=== PATIENT | female | born 1965 | race Two or more races ===

== ENCOUNTER 2025-05-05 18:12 | Emergency (ER) | payer OTHER, MEDICAID ==
[~2025-05-05] VITALS: Ht 162.6 cm; Wt 68.5 kg
--- NOTE | 2025-05-05 18:40 | ECG ---
[facility] Test Date: 2025-05-05 Test Time: 18:20:27 Pat Name: SUNITA MUNSON Department: ED Room: Gender: F Dispenser Operator: harini : 1965 Requested By: ZAIDA BRUNO Order Number: [id number] Reading MD: Alberto Trinidad Measurements Intervals [place] Rate: 81 P: 63 VT: 175 QRS: 73 QRSD: 93 T: 64 QT: 363 QTc: 422 Interpretive Statements Sinus rhythm Abnormal R-wave progression, early transition Electronically Signed On 05-09-2025 18:38:51 PDT by Alberto Trinidad Please click the below link to view image of tracing.
--- NOTE | 2025-05-05 19:01 | ED.PDOC ---
HPI Comments This is a 59-year-old female with a past medical history of diabetes came to the hospital due to right shows the pain since yesterday. She describes the pain as tightness, 4/10, which improves with stretching. She also reports of palpitation. She denies fever, nausea, vomiting, shortness of breaths, or any trauma. Social: Denies smoking or any other drug use. Home meds: Does not take any medicine Chief Complaint: Chest Pain Time Seen by MD: 18:24 Reviewed Notes: Nurses Notes Allergies: Coded Allergies: NO KNOWN ALLERGIES (Unverified , 05/05/25) Mode of Arrival: Ambulatory Past Medical History PAST MEDICAL HISTORY: DM Constitutional: denies: chills, diaphoresis, fatigue, fever, malaise, sweats, weakness, others EENTM: denies: blurred vision, double vision, ear bleeding, ear discharge, ear drainage, ear pain, ear ringing, eye pain, eye redness, hearing loss, mouth pain, mouth swelling, nasal discharge, nose bleeding, nose congestion, nose pain, photophobia, tearing, throat pain, throat swelling, voice changes, others Respiratory: denies: cough, hemoptysis, orthopnea, SOB at rest, shortness of breath, SOB with excertion, stridor, wheezing, others Cardiovascular: reports: chest pain, palpitations; denies: dizzy spells, diaphoresis, Dyspnea on exertion, edema, irregular heart beat, left arm pain, lightheadedness, PND, syncope, others Gastrointestinal: denies: abdomen distended, abdominal pain, blood streaked bowels, constipated, diarrhea, dysphagia, difficulty swallowing, hematemesis, melena, nausea, poor appetite, poor fluid intake, rectal bleeding, rectal pain, vomiting, others Genitourinary: denies: abnormal vagina bleeding, burning, dyspareunia, dysuria, flank pain, frequency, hematuria, incontinence, pain, , vagina discharge, urgency, others Neurological: denies: dizziness, fainting, headache, left sided numbness, left sided weakness, numbness, paresthesia, pre-existing deficit, right sided numbness, right sided weakness, seizure, speech problems, tingling, tremors, weakness, others Musculoskeletal: denies: back pain, gout, joint pain, joint swelling, muscle pain, muscle stiffness, neck pain, others Integumetry: denies: bruises, change in color, change in hair/nails, dryness, laceration, lesions, lumps, rash, wounds, others Allergic/Immunocompromised: denies: Difficulty Healing, Frequent Infections, Hives, Itching, others Hematologic/Lymphatic: denies: anemia, blood clots, easy bleeding, easy bruising, swollen glands, others Endocrine: denies: excessive hunger, excessive sweating, excessive thirst, excessive urination, flushing, intolerance to cold, intolerance to heat, unexplained weight gain, unexplained weight loss, others Psychiatric: denies: anxiety, bipolar disorder, depression, hopeless, panic disorder, schizophrenia, sleepless, suicidal, others Physical Exam General Appearance: No Apparent Distress, Normal HEENT: Normal ENT Inspection, Pharynx Normal, TMs Normal Neck: Full Range of Motion, Non-Tender, Normal, Normal Inspection Respiratory: Chest Non-Tender, Lungs Clear, No Accessory Muscle Use, No Respiratory Distress, Normal Breath Sounds Cardiovascular: No Edema, No JVD, No Murmur, No Gallop, Normal Peripheral Pulses, Regular Rate/Rhythm Breast Exam: Deferred Gastrointestinal: No Organomegaly, Non Tender, No Pulsatile Mass, Normal Bowel Sounds, Soft Genitalia: Deferred Pelvic: Deferred Rectal: Deferred Extremities: No calf tenderness, Normal capillary refill, Normal inspection, Normal range of motion, Non-tender, No pedal edema Musculoskeletal : Apperance: Normal Neurologic: Alert, game warden II-XII nml as Tested, No Motor Deficits, Normal Affect, Normal Mood, No Sensory Deficits Cerebellar Function: Normal Reflexes: Normal Skin: Dry, Normal Color, Warm Lymphatic: No Adenopathy EKG EKG : Comments Normal sinus rhythm with no significant ST or T-wave changes. Was a procedure done? Was a procedure done?: No CP Differential Dx Differential Diagnosis: Other Differential Diagnosis: Angina, Chest Wall Pain, Costochondritis, Pericarditis X-Ray, Labs, Meds, VS Vital Signs Date Time Temp Pulse Resp B/P (MAP) Pulse Ox O2 Delivery O2 Flow Rate FiO2 05/05/25 21:51 98.2 80 17 104/54 (71) 98 98.2 05/05/25 21:51 80 18 98 Room Air 05/05/25 20:30 97.7 90 16 116/78 (91) 96 97.7 05/05/25 19:24 79 05/05/25 18:20 81 05/05/25 18:14 98.8 96 18 147/74 97 98.8 Lab Test 05/05/25 19:28 05/05/25 18:28 Range/Units Troponin I High Sensitivity < 3 L < 3 L </=34 ng/L White Blood Count 11.3 H 4.4-10.8 10^3/uL Red Blood Count 4.67 4.0-5.20 10^6/uL Hemoglobin 13.8 12.2-16.2 g/dL Hematocrit 40.6 36.0-46.0 % Mean Corpuscular Volume 86.9 80.0-100.0 fL Mean Corpuscular Hemoglobin 29.6 28.0-32.0 pg Mean Corpuscular Hemoglobin Concent 34.0 32.0-36.0 g/dL Red Cell Distribution Width 13.2 11.8-14.3 % Platelet Count 241 140-450 10^3/uL Mean Platelet Volume 8.4 6.9-10.8 fL Neutrophils (%) (Auto) 37.0-80.0 % Lymphocytes (%) (Auto) 10.0-50.0 % Monocytes (%) (Auto) 0.0-12.0 % Eosinophils (%) (Auto) 0.0-7.0 % Basophils (%) (Auto) 0.0-2.0 % Neutrophils # (Auto) 1.6-8.6 10 ^3/uL Lymphocytes # (Auto) 0.4-5.4 10 ^3/uL Monocytes # (Auto) 0-1.3 10 ^3/uL Differential Total Cells Counted 100.0 100 Neutrophils % (Manual) 54 37.0-80.0 Band Neutrophils % (Manual) 1 Lymphocytes % (Manual) 24 10.0-50.0 Monocytes % (Manual) 4 0-12 Eosinophils % (Manual) 17 H 0-7 Basophils % (Manual) 0 0.0-2.0 Metamyelocytes % (manual) 0 Myelocytes % (Manual) 0 Promyelocytes % (Manual) 0 Blast Cells % (Manual) 0 Reactive Lymphocytes 0 Platelet Estimate Adequate Red Blood Cell Morphology Normal Sodium Level 143 136-145 mmol/L Potassium Level 3.7 3.5-5.1 mmol/L Chloride Level 106 98-107 mmol/L Carbon Dioxide Level 28 20-31 mmol/L Anion Gap 9 5-15 Blood Urea Nitrogen 12 9-23 mg/dL Creatinine 0.64 0.550-1.02 mg/dL Glomerular Filtration Rate Calc 103 >90 mL/min BUN/Creatinine Ratio 18.8 10.0-20.0 Serum Glucose 140 H 74-106 mg/dL Calcium Level 10.0 8.7-10.4 mg/dL Total Bilirubin 0.3 0.2-1.0 mg/dL Aspartate Amino Transferase (AST) 18 13-40 U/L Alanine Aminotransferase (ALT) 22 7-40 U/L Alkaline Phosphatase 135 H 46-116 U/L Total Protein 7.9 5.7-8.2 g/dL Albumin 4.6 3.2-4.8 g/dL Plasma/Serum Blood Alcohol < 3.0 <10 mg/dL Current Medications Medications (Trade) Dose Ordered Sig/Lola Route Start Time Stop Time Status Last Admin Aspirin 162 mg ONCE ONCE PO 05/05/25 18:30 05/05/25 20:01 DC 05/05/25 20:34 Time of 1ST Reevaluation: 18:58 Reevaluation 1ST: Improved Patient Education/Counseling: Diagnosis, Prognosis, Need For Follow Up Family Education/Counseling: Diagnosis, Treatment, Prognosis, Need For Follow Up Comments Patient came to the hospital due to right shoulder pain. Patient was vitally stable. EKGs showed normal sinus rhythm with no significant ST or T-wave changes. CBC and CBC, normal Serial trop I was within normal. The patient was given aspirin, atorvastatin and nitroglycerin. The patient was also given ibuprofen. The on subsequent checkup the patient was feeling better and had no complaint. Patient was discharged home. Patient was recommended to take ibuprofen as needed for pain control. Follow up with the PCP on outpatient basis. And use Tylenol and ibuprofen as needed for the pain. Shoulder x-ray normal SEPSIS Sepsis Screen Date sepsis recognized/suspect: May 05, 2025 Time Sepsis recognized/suspect: 1814 Recent Procedure: No On Antibiotic Therapy: No Respiratory Rate >20: No Heart Rate >90: Yes Temp<36 C (96.8 F) or >38.3 C: No SBP <90 or MAP <65 mmHG: No New Acute Mental Status Change: No Is the patient on CPAP, BIPAP,: No Physician Orders Electrocardigram (05/05/25 21:17) Drug Screen (05/05/25 18:25) Chest Xray 1 View (05/05/25 20:03) Vital Signs Date Time Temp Pulse Resp B/P (MAP) Pulse Ox O2 Delivery O2 Flow Rate FiO2 05/05/25 21:51 98.2 80 17 104/54 (71) 98 98.2 05/05/25 21:51 80 18 98 Room Air 05/05/25 20:30 97.7 90 16 116/78 (91) 96 97.7 05/05/25 19:24 79 05/05/25 18:20 81 05/05/25 18:14 98.8 96 18 147/74 97 98.8 Laboratory Tests Test 05/05/25 18:28 White Blood Count 11.3 10^3/uL (4.4-10.8) H Medications Medications Dose Ordered Sig/Lola Route Start Time Stop Time Status Last Admin Dose Admin Aspirin 162 mg ONCE ONCE PO 05/05/25 18:30 05/05/25 20:01 DC 05/05/25 20:34 Departure 1 Departure Time of Disposition: 18:00 Impression: Primary Impression: Musculoskeletal chest pain Disposition: 01 HOME / SELF CARE / HOMELESS Condition: Fair Comments Attestation: I saw and evaluated the patient. I agree with the findings and plan of care as documented by the resident note. ZAIDA BRUNO MD Critical Care Note Critical Care Time?: Yes (35 min-critical care time only) Stability Stability form required: No Heart Score Heart Score: Heart Score Response (Comments) Value History N/A 0 EKG Normal 0 Age 45-64 1 Risk Factors 1 or 2 risk factors 1 Troponin Normal limit 0 Total 2 ELLIS TRACEY RESDIENT May 05, 2025 19:01 ZAIDA BRUNO MD May 06, 2025 04:05
[2025-05-05 19:38] LABS: Hematocrit 40.6 % (36.0-46.0); Hemoglobin 13.8 g/dL (12.2-16.2); Mean Corpuscular Hemoglobin 29.6 pg (28.0-32.0); Mean Corpuscular Volume 86.9 fL (80.0-100.0)
[2025-05-05 19:49] LABS: Alanine Aminotransferase 22 U/L (7-40); Albumin 4.6 g/dL (3.2-4.8); Anion Gap 9 (5-15); BUN/Creatinine Ratio 18.8 (10.0-20.0); Bilirubin, Total 0.3 mg/dL (0.2-1.0); Blood Urea Nitrogen 12 mg/dL (9-23); Calcium 10.0 mg/dL (8.7-10.4); Carbon Dioxide 28 mmol/L (20-31); Chloride 106 mmol/L (98-107); Potassium 3.7 mmol/L (3.5-5.1); Sodium 143 mmol/L (136-145); Total Protein 7.9 g/dL (5.7-8.2)
[2025-05-05 19:55] LABS: Alkaline Phosphatase 135 U/L (46-116); Glucose 140 mg/dL (74-106)
--- NOTE | 2025-05-05 20:05 | ECG ---
[facility] Test Date: 2025-05-05 Test Time: 19:24:58 Pat Name: SUNITA MUNSON Department: ED Room: Gender: F Patcher Bowling Ball: CARIN : 1965 Requested By: ZAIDA BRUNO Order Number: [id number] Reading MD: Alberto Trinidad Measurements Intervals [place] Rate: 79 P: 58 [place]: 181 QRS: 66 QRSD: 95 T: 48 QT: 367 QTc: 421 Interpretive Statements Sinus rhythm Abnormal R-wave progression, early transition Electronically Signed On 05-09-2025 18:39:03 PDT by Alberto Trinidad Please click the below link to view image of tracing.
[2025-05-05 20:11] LABS: RBC Morphology Normal; Total Cells Counted 100.0 (100)
--- NOTE | 2025-05-05 20:28 | DVH ---
CHEST RADIOGRAPH Indication: chest pain Technique: 1 view Comparison: None FINDINGS: Lines and Tubes: None Lungs/Pleura: No focal consolidation, pleural effusion or pneumothorax. Cardiomediastinum: Unremarkable. Other: No acute osseous abnormality. IMPRESSION: 1. No acute cardiopulmonary abnormality.
[2025-05-05] MEDS: ATORVASTATIN 20 MG TAB PO ONE (20:35)
[2025-05-05] MEDS: NITROGLYCERIN 0.4 MG SL TAB SL ONE (20:35)
[2025-05-05 21:51] VITALS: BP 104/54; PULSE 80; RESP 18; TEMP 98.2; O2SAT 98
== END 2025-05-05 21:53 | disposition home or self-care (01) ==
LOC: ER 18:12
DX: R07.89 Other chest pain (principal); E11.9 Type 2 diabetes mellitus without complications
CPT/HCPCS: 36415; 71045; 80053; 80320; 84484; 85007; 85027; 93005